=== PATIENT | female | born 1985 | race Caucasian/White ===

== ENCOUNTER 2018-08-12 00:18 | Emergency (ER) | payer MEDICAID ==
[2018-08-12 00:47] LABS: % EOSINOPHILS 0.6 % (0.0-5.0); % LYMPHOCYTES 29.9 % (20.0-50.0); % MONOCYTES 8.6 % (2.0-10.0); % NEUTROPHILS 59.9 % (40.0-80.0); BASOPHILE ABSOLUTE 0.1 Th/cumm (0-0.2); EOSINOPHILE ABSOLUTE 0.1 Th/cmm (0.1-0.4); HEMATOCRIT 42.2 % (41.0-60); HEMOGLOBIN 13.6 gm/dL (12-16); LYMPHOCYTE ABSOLUTE 2.5 Th/cmm (1.5-3.0); MEAN CELL VOLUME 83.4 fl (81-100); MEAN CORPUSCULAR HEMOGLOBIN 26.9 pg (27.0-31.0); MEAN CORPUSCULAR HGB CONC 32.3 pg (28.0-36.0); MEAN PLATELET VOLUME 7.8 fl; MONOCYTE ABSOLUTE 0.7 Th/cmm (0.3-1.0); PLATELET COUNT 595 Th/cmm (150-400); RED BLOOD COUNT 5.06 Mil/cmm (3.80-5.10); RED CELL DISTRIBUTION WIDTH 16.9 % (11.5-20.0); WHITE BLOOD COUNT 8.4 Th/cmm (4.8-10.8)
--- NOTE | 2018-08-12 00:47 | ED Physician Chart ---
ED Chief Complaint/HPI - Patient Information Date Seen:: 08/12/18 Time Seen:: 00:27 Chief Complaint:: anxiety History of Present Illness:: this is a 32 yo female with a history of heart failure bib ems with concern about her feeling of anxiety. she denies alcohol and drug abuse. she denies chest pain,sob and diabetes. Historian:: Patient Review:: Nurse's Note Reviewed, EMS run form Reviewed ED Review of Systems - Review of Systems General/Constitutional: No fever, No chills, No weight loss, No weakness, No diaphoresis, No edema, No loss of appetite Skin: No skin lesions, No rash, No bruising Head: No headache, No light-headedness Eyes: No loss of vision, No pain, No diplopia ENT: No earache, No nasal drainage, No sore throat, No tinnitus Neck: No neck pain, No swelling, No thyromegaly, No stiffness, No mass noted Cardio Vascular: No chest pain, No palpitations, No PND, No orthopnea, No edema Pulmonary: No SOB, No cough, No sputum, No wheezing GI: No nausea, No vomiting, No diarrhea, No pain, No melena, No hematochezia, No constipation, No hematemesis G/U: No dysuria, No frequency, No hematuria Musculoskeletal: No bone or joint pain, No back pain, No muscle pain Endocrine: No polyuria, No polydipsia Psychiatric: No prior psych history, No depression, Anxiety, No suicidal ideation Hematopoietic: No bruising, No lymphadenopathy Allergic/Immuno: No urticaria, No angioedema Neurological: No syncope, No focal symptoms, No weakness, No paresthesia, No headache, No seizure, No dizziness, No confusion, No vertigo ED Past Medical History - Past Medical History Obtainable: Yes Past Medical History: HTN, CHF, Other (anxiey) Family History: None Social History: Smoker, No Alcohol, No Drug Use, Employed Surgical History: (x3) ED Physical Exam - Physical Examination General/Constitutional: Awake, Well-developed, well-nourished, Alert, No distress, GCS 15, Non-toxic appearing, Ambulatory Head: Atraumatic Eyes: Lids, conjuctiva normal, PERRL, EOMI Skin: Nl inspection, No rash, No skin lesions, No ecchymosis, Well hydrated, No lymphadenopathy ENMT: External ears, nose nl, Nasal exam nl, Lips, teeth, gums nl Neck: Nontender, Full ROM w/o pain, No JVD, No nuchal rigidity, No bruit, No mass, No stridor Respiratory: Nl effort/Exclusion, Clear to Auscultation, No Wheeze/Rhonchi/Rales Cardio Vascular: RRR, No murmur, gallop, rubs, NL S1 S2 GI: No tenderness/rebounding/guarding, No organomegaly, No hernia, Normal BS's, Nondistended, No mass/bruits, No McBurney tenderness : No CVA tenderness Extremities: No tenderness or effusion, Full ROM, normal strength in all extremities, No edema, Normal digits & nails Neuro/Psych: Alert/oriented, DTR's symmetric, Normal sensory exam, Normal motor strength, Judgement/insight normal, Mood normal, Normal gait, No focal deficits Misc: Normal back, No paraspinal tenderness ED Labs/Radiology/EKG Results - Lab Results Results: Abnormal Lab Results 08/12/18 08/12/18 08/12/18 00:23 00:24 00:35 WBC 8.4 RBC 5.06 Hgb 13.6 Hct 42.2 MCV 83.4 MCH 26.9 L MCHC Differential 32.3 RDW 16.9 Plt Count 595 H MPV 7.8 Neutrophils % 59.9 Lymphocytes % 29.9 Monocytes % 8.6 Eosinophils % 0.6 Basophils % 1.0 PT 14.7 H INR 1.43 H PTT (Actin FS) 25.9 L Specimen Source arterial Sample Site rr pH 7.450 pCO2 20.7 L* pO2 58.7 L HCO3 14.2 L Base Excess -7.1 L O2 Saturation 92.4 Andrzej Test positive Critical Value hill POC Glucose Troponin I TSH Urine Source Urine Color Urine Clarity Urine pH Ur Specific [place] Urine Protein Urine Glucose (UA) Urine Ketones Urine Blood Urine Nitrate Urine Bilirubin Urine Urobilinogen Ur Leukocyte Esterase Urine RBC Urine WBC Ur Epithelial Cells Urine Bacteria Urine Opiates Screen Urine Methadone Screen Ur Barbiturates Screen Ur Tricyclics Screen Ur Phencyclidine Scrn Amphetamines Screen U Methamphetamines Scrn U Benzodiazepines Scrn U Cocaine Metab Screen U Cannabinoids Screen 04/07/19 04/07/19 04/07/19 00:35 00:35 01:45 WBC RBC Hgb Hct MCV MCH MCHC Differential RDW Plt Count MPV Neutrophils % Lymphocytes % Monocytes % Eosinophils % Basophils % PT INR PTT (Actin FS) Specimen Source Sample Site pH pCO2 pO2 HCO3 Base Excess O2 Saturation Andrzej Test Critical Value POC Glucose Troponin I 0.04 TSH 1.75 Urine Source CLEAN C Urine Color YELLOW Urine Clarity CLEAR Urine pH 6.0 Ur Specific [place] 1.015 Urine Protein 100 H Urine Glucose (UA) NEGATIVE Urine Ketones NEGATIVE Urine Blood SMALL H Urine Nitrate NEGATIVE Urine Bilirubin NEGATIVE Urine Urobilinogen 0.2 Ur Leukocyte Esterase NEGATIVE Urine RBC 0-2 Urine WBC NONE SEEN Ur Epithelial Cells RARE Urine Bacteria NONE SEEN Urine Opiates Screen Urine Methadone Screen Ur Barbiturates Screen Ur Tricyclics Screen Ur Phencyclidine Scrn Amphetamines Screen U Methamphetamines Scrn U Benzodiazepines Scrn U Cocaine Metab Screen U Cannabinoids Screen 08/12/18 08/12/18 01:45 03:50 WBC RBC Hgb Hct MCV MCH MCHC Differential RDW Plt Count MPV Neutrophils % Lymphocytes % Monocytes % Eosinophils % Basophils % PT INR PTT (Actin FS) Specimen Source Sample Site pH pCO2 pO2 HCO3 Base Excess O2 Saturation Andrzej Test Critical Value POC Glucose 111 H Troponin I TSH Urine Source Urine Color Urine Clarity Urine pH Ur Specific [place] Urine Protein Urine Glucose (UA) Urine Ketones Urine Blood Urine Nitrate Urine Bilirubin Urine Urobilinogen Ur Leukocyte Esterase Urine RBC Urine WBC Ur Epithelial Cells Urine Bacteria Urine Opiates Screen NEGATIVE Urine Methadone Screen NEGATIVE Ur Barbiturates Screen NEGATIVE Ur Tricyclics Screen NEGATIVE Ur Phencyclidine Scrn NEGATIVE Amphetamines Screen POSITIVE H U Methamphetamines Scrn NEGATIVE U Benzodiazepines Scrn POSITIVE H U Cocaine Metab Screen NEGATIVE U Cannabinoids Screen POSITIVE H - Radiology Results Results: chest x-ray = cardiomegaly 4+ ED Assessment - Assessment General Assessment: anxiety ED Septic Shock - . Is Septic Shock (SBP<90, OR Lactate>4 mmol\L) present?: No ED Reassessment (Disposition) - Reassessment Reassessment Condition:: Improved - Diagnosis Diagnosis:: hyperventilation syndrome chf drug abuse - Patient Disposition Discharge/Transfer:: Home Condition at Disposition:: Improved
[2018-08-12 00:54] LABS: INR 1.43 (0.5-1.4); PROTHROMBIN TIME (TEST) 14.7 SECONDS (9.5-11.5)
[2018-08-12 01:47] LABS: URINE SOURCE CLEAN C
[2018-08-12] MEDS ORDERED: Acetaminophen 500 MG TAB PO ONE (02:11)
[2018-08-12] MEDS ORDERED: Acetaminophen 500 MG TAB ONE (02:13)
[2018-08-12 02:18] LABS: URINE BILIRUBIN NEGATIVE (NEGATIVE); URINE BLOOD SMALL (NEGATIVE); URINE GLUCOSE (UA) NEGATIVE (NEGATIVE); URINE KETONE NEGATIVE (NEGATIVE); URINE LEUKOCYTE ESTERASE NEGATIVE (NEGATIVE); URINE MICROSCOPIC INDICATED? YES; URINE NITRATE NEGATIVE (NEGATIVE); URINE PROTEIN 100 mg/dL (NEGATIVE); URINE UROBILINOGEN 0.2 E.U./dL (0.2 - 1.0)
[2018-08-12 02:21] LABS: URINE CLARITY CLEAR (CLEAR); URINE COLOR YELLOW
[2018-08-12 02:31] LABS: PaCO2 20.7 mmHg (35.0-45.0); PaO2 58.7 mmHg (80.0-100.0)
[2018-08-12 02:32] LABS: ALLEN TEST positive; sO2c 92.4 % (92.0-100.0)
[2018-08-12 02:34] LABS: URINE RBC 0-2 /hpf (0-5); URINE WBC NONE SEEN /hpf (0-5)
[2018-08-12 02:35] LABS: URINE BACTERIA NONE SEEN /hpf (NONE SEEN); URINE EPITHELIAL CELLS RARE /lpf (FEW)
[2018-08-12 02:38] LABS: AMPHETAMINE URINE POSITIVE (NEGATIVE); BARBITURATES URINE NEGATIVE (NEGATIVE); COCAINE METABOLITE QUAL URINE NEGATIVE (NEGATIVE); METHAMPHETAMINES QUAL URINE NEGATIVE (NEGATIVE); PHENCYCLIDINE (PCP) URINE NEGATIVE (NEGATIVE); TRICYCLICS (TCA) QUAL. URINE NEGATIVE (NEGATIVE)
[2018-08-12 02:39] LABS: METHADONE URINE NEGATIVE (NEGATIVE); OPIATES (MORPHINE) QUAL. URINE NEGATIVE (NEGATIVE)
[2018-08-12 02:40] LABS: BENZODIAZEPINES QUAL URINE POSITIVE (NEGATIVE); CANNABINOID THC POSITIVE (NEGATIVE)
[2018-08-12 09:15] LABS: ALB/GLOB RATIO 1.2 (1.0-1.8); ALBUMIN 3.3 gm/dL (3.7-5.3); ALKALINE PHOSPHATASE 201 U/L (34-104); ANION GAP 17.2 (7.0-16.0); BILIRUBIN,TOTAL 1.1 mg/dL (0.3-1.0); BUN - UREA NITROGEN 23 mg/dL (7-25); CALCIUM SERUM 9.3 mg/dL (8.6-10.3); CARBON DIOXIDE 18.6 mEq/L (21.0-31.0); CHLORIDE 105 mEq/L (98-107); CREATININE - SERUM 0.9 mg/dL (0.6-1.2); GFR AFRICAN-AMERICAN > 60.0 ml/min (>90); GFR NON AFRICAN-AMERICAN > 60.0 ml/min; GLUCOSE 107 mg/dL (70-105); POTASSIUM SERUM 3.8 mEq/L (3.5-5.1); SGOT 38 U/L (13-39); SGPT/ALT 31 U/L (7-52); SODIUM SERUM 137 mEq/L (136-145); TOTAL PROTEIN,SERUM 6.1 gm/dL (6.0-8.3)
--- NOTE | 2018-08-12 10:55 | Diagnostic Imaging Report ---
CHEST X-RAY: AP view INDICATION: CHF COMPARISON: None FINDINGS: Left basal density is noted. Marked cardiomegaly is noted. Small left effusion is noted. Osseous structures are intact. IMPRESSION: Small left effusion. Left basal density is noted which may be due to atelectasis, however, infiltrate cannot be excluded. No evidence of ravi CHF Marked cardiomegaly, correlate clinically.
== END 2018-08-12 11:05 | disposition home or self-care (01) ==
LOC: ER 00:18
DX: I11.0 Hypertensive heart disease with heart failure (principal); I50.9 Heart failure, unspecified; F45.8 Other somatoform disorders; F19.10 Other psychoactive substance abuse, uncomplicated; F41.9 Anxiety disorder, unspecified; F17.200 Nicotine dependence, unspecified, uncomplicated; Z88.5 Allergy status to narcotic agent
CPT/HCPCS: 99284; 96372 ×2; 82803; 93005; 71045; 84484; 36415; 36416; 82948; 80307; 84443; 85025; 85610; 85730; 81001; 80053; J2060 ×2; Z7610